=== PATIENT | male | born 1970 | race Caucasian/White ===

== ENCOUNTER 2017-04-18 19:30 | Inpatient (IN) | payer BC ==
--- NOTE | ~2017-04-18 | HP ---
History And Physical [place] [facility] [place]. [address] NAME: PEMA ALANIZ : 70 STATUS : ADM IN [facility]#: [id number] AGE: 46 ADM/REG DATE : 04/18/17 MR#: [id number] REPORT SERV DATE: 04/19/17 DICTATED BY: LYUBOV HOANG DATE: 04/18/17 REPORT STATUS : Draft TRANSCRIBED BY: MODL DATE: 04/18/17 DATE OF ADMISSION: 04/18/2017 CHIEF COMPLAINT: Abdominal cellulitis, sent from Dr. Gregorio' office. HISTORY OF PRESENT ILLNESS: The patient is a very pleasant 46-year-old male with past medical history of type 2 diabetes, insulin dependent; hypothyroidism; obesity; additional history of MRSA; cellulitis from the left foot, who presents with open sore in his abdomen over the last three days, started having bloody discharge after he had packed it with gauze at work and decided to get checked out by his PCP, Dr. Gregorio. The patient reports that he does not recall having done anything to have this wound, there is possibly an ingrown hair, but knowing history of prior MRSA, it was concerned that this could be a repeat infection, although last episode was many years ago. The patient is accompanied by who is at bedside and the patient does not report having any injuries. does report that he has been picking at lesion. He has been trying to treat it himself and has subsequently had a black eschar formation, has not had great resolution as erythema continues to spread. Blood sugars have been still fairly well controlled. Has not had any fevers, chest pain, shortness of breath, nausea, vomiting, diarrhea, decrease in p.o. intake, night sweats, and cramping. He is still fairly active. Pain is worsened with palpation, nothing improves it. REVIEW OF SYSTEMS: 10-point review of systems negative except for that noted in the HPI. PAST MEDICAL HISTORY: Noted for MRSA foot cellulitis, Achilles tendinitis, coronary artery disease with stent placement by Dr. Conn, insulin-dependent diabetes, GERD, hypertension, hyperlipidemia, hypothyroidism, psoriasis, UTI, kidney stone, and sleep apnea. PAST SURGICAL HISTORY: Cath and hernia. FAMILY HISTORY: Arthritis, diabetes, coronary artery disease, CVA, and hypertension. SOCIAL HISTORY: No alcohol. Smokes one cigar possibly every three months. No illegal drugs. . PHYSICAL EXAMINATION: VITAL SIGNS: Blood pressure 161/86, temperature 98.2, pulse 91. GENERAL: No acute distress. Calm, pleasant, well developed, well nourished. EYES: No scleral icterus. EOMI. ENT: Nares patent. Tongue midline. Moist mucous membranes. NECK: Large. CHEST: Equal chest expansion. No increased AP diameter. RESPIRATORY: Clear to auscultation. No wheezes or rales. CV: Regular rate. No rubs or gallops. Mild trace edema bilaterally. ABDOMEN: Soft, nontender, nondistended. Negative rebound at upper groin. Lower panniculitis does have tenderness to palpation, erythema, but no draining at this time. History And Physical [place] [address] [facility] [place]. [address] NAME: PEMA ALANIZ : 70 STATUS : ADM IN [facility]#: [id number] AGE: 46 ADM/REG DATE : 04/18/17 MR#: [id number] REPORT SERV DATE: 04/19/17 DICTATED BY: LYUBOV HOANG DATE: 04/18/17 REPORT STATUS : Draft TRANSCRIBED BY: GILES DATE: 04/18/17 Does have black eschar on right side from healing, possibly early blood scar. No active oozing at this time. GROIN: Normal external genitalia. EXTREMITIES: Moves all extremities x4. NEUROLOGIC: Symmetrical smile, hand strength. Tongue midline. No tremors. Normal vocal nohemy. Sensation is still grossly intact. PSYCHIATRIC: Appropriate mood and affect. LABORATORY DATA: Still currently pending. ASSESSMENT AND PLAN: 1. Abdominal cellulitis abscess with methicillin-resistant Staphylococcus aureus history. 2. Obesity. 3. Hypothyroidism. 4. Hypertension. 5. Coronary artery disease. 6. Insulin-dependent diabetes. 7. Hyperlipidemia. PLAN: 1. For abdominal cellulitis abscess MRSA with MRSA history, vancomycin IV, check cultures, surgical evaluation was last in clinic. If possible, we will need additional clearance. For obesity, he has lost over 50 pounds. 2. Hypothyroidism. Check free T4, TSH. 3. Hypertension. BITA inhibitor and beta-georgina. We will continue to monitor. 4. Coronary artery disease, on Plavix, statin, lisinopril, metoprolol, followed by Dr. Conn. 5. Insulin-dependent diabetes type 2. Check A1c. Levemir and sliding scale insulin. 6. Hyperlipidemia on statin. All questions answered with the patient and family at bedside. Anticipate greater than two midnight inpatient stay. DDN/MODL Lyubov Hoang MD / [id number] CC: MD Cesar Crowell III, D.O.
--- NOTE | ~2017-04-18 | DS ---
Discharge Summary [facility] [address] [place]. [address] NAME: PEMA ALNAIZ : 70 STATUS : DIS IN PAT#: [id number] AGE: 46 ADM/REG DATE : 04/18/17 MR#: [id number] REPORT SERV DATE: 04/22/17 DICTATED BY: DATE: REPORT STATUS : Draft TRANSCRIBED BY: MODL DATE: 04/21/17 ADMISSION DATE: 04/18/2017 DISCHARGE DATE: 04/21/2017 The patient was [facility] to the [facility]. PAPER BAG PRESS OPERATOR: Dr. Parish Reynaga of General Surgery. DISCHARGE DIAGNOSES: 1. methicillin-susceptible Staphylococcus aureus cellulitis and abdominal wall/pubic abscess, status post incision and drainage on 04/19/2017. 2. History of methicillin-resistant Staphylococcus aureus infection. 3. Asymptomatic bacteriuria - culture demonstrated greater than 100,000 colony-forming units of Klebsiella, cephalosporin sensitive. 4. Coag-negative Staph, positive blood culture - suspect contaminant. 5. Insulin-dependent diabetes mellitus type 2 - uncontrolled with hemoglobin A1c of 10.7 due to dietary noncompliance. 6. Obesity with recent intentional weight loss. 7. Hypertension - controlled. 8. Hyperlipidemia. 9. Hypothyroidism - with elevated TSH of 3.95 and normal free T4, for outpatient recheck. 10.History of coronary artery disease with prior stenting. IMAGING: None. PROCEDURES: Bedside incision and drainage of abdominal wall/pubic abscess on 04/19/[address] Ashutosh Calderon. PERTINENT LABS: Procalcitonin 1.11, creatinine value 0.8 to 0.9 this admission with normal electrolytes. Blood glucose values ranging from 150-230, hemoglobin A1c 10.7. Liver enzymes normal. TSH 3.95, free T4 of 1.22. White count initially 10.7, 9.2 at discharge. Hemoglobin values between 12.4, 12.8, platelets normal. Coagulation studies normal. Urinalysis cloudy with moderate leukocyte esterase and 19 white blood cells. Blood cultures one out of two positive on 04/18/2017 for coag-negative Staph. Urine culture positive on 04/19/2017, greater than 100,000 colony-forming units of Klebsiella. Wound cultures 04/18/2017 and 04/19/2017 demonstrating moderate to abundant growth of MSSA, resistant to ampicillin. BRIEF HISTORY: For full details, please see the previously dictated history of present illness by Dr. Alexis Gomez. This is a 46-year-old white male with past medical history of MRSA cellulitis, uncontrolled insulin-dependent type 2 diabetes, morbid obesity, sent as a direct admission from Dr. Miguel Gregorio' office with abdominal wall cellulitis. The patient had been treating with topical antibiotic ointment with progression of pain, redness, and development of a black eschar. Per patient, when he saw Dr. Gregorio, incision and drainage of the abscess cavity was attempted but unsuccessful. The patient was then admitted to the hospital for further management. Discharge Summary [place] [id number] [place]. [address] NAME: PEMA ALANIZ : 70 STATUS : DIS IN PAT#: [id number] AGE: 46 ADM/REG DATE : 04/18/17 MR#: [id number] REPORT SERV DATE: 04/22/17 DICTATED BY: DATE: REPORT STATUS : Draft TRANSCRIBED BY: MODL DATE: 04/21/17 HOSPITAL COURSE: The patient was admitted and placed on empiric vancomycin given history of MRSA infections in the past. General Surgery was consulted and performed bedside incision and drainage without complication on 04/19/2017. Subsequent wound cultures demonstrated abundant MSSA. Blood cultures were one out of two positive for coag-negative staph, which was felt to be a contaminant. The patient also had noted abnormal urinalysis. Though he had no symptoms suggestive of urinary tract infection, subsequent culture returned greater than 100,000 colony-forming units of Klebsiella. Both the MSSA and Klebsiella are cephalosporin susceptible and will be treated with Duricef at discharge. The patient will continue his local wound care to include packing with a wick and covering with a gauze bandage. He was provided with a work note to return to full duty without restrictions on 04/25/2017. His diabetes is uncontrolled with hemoglobin A1c of 10.7. The patient was seen by the inpatient diabetes mellitus educator. He required left basal insulin here than outpatient, suggesting possible dietary noncompliance. He stated that he would attempt to be more strict about his diet and follow up closely with Dr. Gregorio regarding any future insulin adjustments that would be needed. The only other issue this admission was abnormal thyroid function test - as dictated above. On his current dose of replacement, his TSH was slightly high. The free T4 was normal. This could be affected by the acute illness. Recommend repeat values in four to six weeks. DISCHARGE DISPOSITION: To home with his supportive and no specific activity restrictions aside from the work note provided, to return to work on 04/25/2017. Regarding diet, he should adhere to an 1800 K calorie ADA diet. DISCHARGE MEDICATIONS: Include: 1. Aspirin 325 mg p.o. daily. 2. Lipitor 80 mg p.o. daily. 3. Plavix 75 mg p.o. daily. 4. Hydrochlorothiazide 25 mg p.o. daily. 5. Toujeo 25 units subcu at bedtime. 6. Levothyroxine 150 mcg on Tuesday, Tuesday, Tuesday, , Tuesday, and 175 mcg on Tuesday and Tuesday. 7. Lisinopril 10 mg p.o. daily. 8. Toprol-XL 25 mg p.o. daily. 9. Protonix 40 mg p.o. daily. 10.Calcipotriene ointment, apply daily as needed. 11.Qytj-ivl-eiskegv supplements including cranberry, multivitamin, glucosamine, B12, vitamin C, vitamin D. 12.Glipizide/metformin 5/500 mg one tablet p.o. twice a day. Discharge Summary [address] [address] NAME: PEMA ALANIZ : 70 STATUS : DIS IN PAT#: [id number] AGE: 46 ADM/REG DATE : 04/18/17 MR#: [id number] REPORT SERV DATE: 04/22/17 DICTATED BY: DATE: REPORT STATUS : Draft TRANSCRIBED BY: GILES DATE: 04/21/17 13.Duricef 1000 mg p.o. b.i.d. for 11 days to complete a 14 day total treatment course. Thirty five minutes was spent in completion of the discharge. DICTATED BY: Manuel Gao/GILES Bear Blair M.D. / [id number] CC: Manuel Gao III, D.O. William T. Bates III, D.O.
[~2017-04-18 19:30] MED LIST: ASA5GR PO; ASAB PO; CRESTOR40 MG PO; DUETACT PO; GLUMETZA500 MG PO; LEVOTHYROXIN150 MCG PO; LEVOTHYROXIN175 MCG PO; LOP25 PO; MULTIPLE VIT PO; MULTIVITAMI1 PO; PLAVIX PO; PRIN20 PO; TOPXL25 PO; VICTOZA 18MG/3ML; VITAMIN B-121000 MC1 SL; VITAMIN C100 MG PO; VITC500 PO; ZESTORETIC1 TAB PO; ZOCOR40 PO
[2017-04-18 21:49] LABS: BASOPHILS 0.3 %; BASOPHILS ABSOLUTE 0.03 10/3/uL (0.0-0.16); EOSINOPHILS 4.7 %; HEMATOCRIT 38.4 % (40.0-51.0); HEMOGLOBIN 12.8 g/dL (13.6-17.8); IMMATURE GRANULOCYTES 0.5 %; IMMATURE GRANULOCYTES ABSOLUTE 0.05 10/3/uL (0.0-0.11); LYMPHOCYTES 24.1 %; LYMPHOCYTES ABSOLUTE 2.57 10/3/uL (0.67-4.30); MEAN CORPUS HGB CONC 33.3 g/dL (32.0-36.0); MEAN CORPUSCULAR VOLUME 86.9 fL (80-100); MEAN PLATELET VOLUME 9.5 fL (9.2-13.0); MONOCYTES 7.9 %; MONOCYTES ABSOLUTE 0.84 10/3/uL (0.21-1.20); NEUTROPHILS 62.5 %; NEUTROPHILS ABSOLUTE 6.68 10/3/uL (2.02-8.40); PLATELET COUNT 267 10/3/uL (150-400); RBC DISTRIBUTION WIDTH 13.4 % (12.0-16.0); RED CELL COUNT 4.42 10/6/uL (4.7-6.1); WHITE BLOOD CELLS 10.7 10/3/uL (4.5-10.5)
[2017-04-18 21:52] LABS: MANUAL DIFF NO %
[2017-04-18] MEDS ORDERED: PRIN10 PO (22:09)
[2017-04-18] MEDS ORDERED: LIPITOR80 MG PO (22:15)
[2017-04-18] MEDS ORDERED: METAGLIP1 TA2 PO (22:18)
[2017-04-18] MEDS ORDERED: HYDROCHLOROT25 MG PO (22:20)
[2017-04-18] MEDS ORDERED: PROTONIX PO (22:23)
[2017-04-18] MEDS ORDERED: LEVOTHYROXINE PO (22:30)
[2017-04-18] MEDS ORDERED: ASA5GR PO (22:31)
[2017-04-18 22:58] LABS: ALBUMIN 3.6 G/DL (3.5-5.0); ALKALINE PHOSPHATASE 76 U/L (45-117); BUN (BLOOD UREA NITROGEN) 12 MG/DL (6-23); CALCIUM, SERUM 8.9 MG/DL (8.5-10.4); CHLORIDE, SERUM 103 MMOL/L (96-112); CREATININE 0.87 MG/DL (0.70-1.30); GFR AFRICAN AMERICAN 120 ML/MIN (>=60); GFR NON AFRICAN AMERICAN 104 ML/MIN (>=60); GLOBULIN 3.7 G/DL (2.5-4.1); GLUCOSE, SERUM 154 MG/DL (60-99); POTASSIUM, SERUM 3.7 MMOL/L (3.5-5.3); SGOT(AST) 23 U/L (5-40); SGPT(ALT) 33 U/L (5-65); SODIUM, SERUM 141 MMOL/L (135-148); TOTAL BILIRUBIN 0.6 MG/DL (0-1.2); TOTAL PROTEIN 7.3 G/DL (6.0-8.5)
[2017-04-18 22:59] LABS: CO2 (CARBON DIOXIDE) 30 MMOL/L (24-34)
[2017-04-19 00:45] LABS: FREE T4 1.22 NG/DL (0.76-1.46)
[2017-04-19 09:03] LABS: ASCORBIC ACID (UR NOT ORDER) 40 (NEG); BILIRUBIN, URINE NEGATIVE (NEG); KETONE, URINE NEGATIVE (NEG); LEUKOCYTE ESTERASE(NOT OR MOD (NEG); WBC (NOT ORDERED) (RFLEX) 19 (0-5)
[2017-04-19 10:51] LABS: BASOPHILS 0.2 %; BASOPHILS ABSOLUTE 0.02 10/3/uL (0.0-0.16); EOSINOPHILS 6.3 %; EOSINOPHILS ABSOLUTE 0.56 10/3/uL (0.0-0.53); HEMATOCRIT 38.6 % (40.0-51.0); HEMOGLOBIN 12.5 g/dL (13.6-17.8); IMMATURE GRANULOCYTES 0.3 %; IMMATURE GRANULOCYTES ABSOLUTE 0.03 10/3/uL (0.0-0.11); LYMPHOCYTES 24.9 %; LYMPHOCYTES ABSOLUTE 2.23 10/3/uL (0.67-4.30); MANUAL DIFF NO %; MEAN CORPUS HGB CONC 32.4 g/dL (32.0-36.0); MEAN CORPUSCULAR HEMOGLOB 28.3 pg (26.0-34.0); MEAN CORPUSCULAR VOLUME 87.5 fL (80-100); MEAN PLATELET VOLUME 9.3 fL (9.2-13.0); MONOCYTES 7.4 %; MONOCYTES ABSOLUTE 0.66 10/3/uL (0.21-1.20); NEUTROPHILS 60.9 %; NEUTROPHILS ABSOLUTE 5.45 10/3/uL (2.02-8.40); PLATELET COUNT 241 10/3/uL (150-400); RBC DISTRIBUTION WIDTH 13.5 % (12.0-16.0); RED CELL COUNT 4.41 10/6/uL (4.7-6.1)
[2017-04-19 11:04] LABS: BUN (BLOOD UREA NITROGEN) 11 MG/DL (6-23); CHLORIDE, SERUM 101 MMOL/L (96-112); CO2 (CARBON DIOXIDE) 27 MMOL/L (24-34); GFR AFRICAN AMERICAN 124 ML/MIN (>=60); GFR NON AFRICAN AMERICAN 107 ML/MIN (>=60); GLUCOSE, SERUM 183 MG/DL (60-99); POTASSIUM, SERUM 3.8 MMOL/L (3.5-5.3); SODIUM, SERUM 135 MMOL/L (135-148)
[2017-04-19 12:18] LABS: PROCALCITONIN 1.11 ng/mL (<0.5)
[2017-04-19] MEDS ORDERED: LIPITOR80 MG PO (12:38)
[2017-04-19] MEDS ORDERED: BYDUREON2 MG SQ (12:39)
[2017-04-19] MEDS ORDERED: TESSALON200 MG PO (12:39)
[2017-04-19] MEDS ORDERED: DOVONCR60 TOP (12:40)
[2017-04-19] MEDS ORDERED: PLAVIX PO (12:40)
[2017-04-19] MEDS ORDERED: CRANBERRY500 MG PO (12:40)
[2017-04-19] MEDS ORDERED: HYDROCHLOROT25 MG PO (12:42)
[2017-04-19] MEDS ORDERED: METAGLIP1 TA2 PO (12:42)
[2017-04-19] MEDS ORDERED: LEVOTHYROXIN175 MCG PO (12:44)
[2017-04-19] MEDS ORDERED: SYN.15 PO (12:44)
[2017-04-19] MEDS ORDERED: ZESTRIL10 MG PO (12:45)
[2017-04-19] MEDS ORDERED: MULTIVITAMI1 PO (12:46)
[2017-04-19] MEDS ORDERED: TOPXL25 PO (12:46)
[2017-04-19] MEDS ORDERED: OSTEO BI-FLEX1 EACH PO (12:47)
[2017-04-19] MEDS ORDERED: PROTONIX PO (12:47)
[2017-04-19] MEDS ORDERED: ZOFRAN ODT4 MG PO (12:47)
[2017-04-19] MEDS ORDERED: CYANO1000T PO (12:49)
[2017-04-19] MEDS ORDERED: VITC500 PO (12:49)
[2017-04-19] MEDS ORDERED: TOUJEO SQ (12:49)
[2017-04-19] MEDS ORDERED: VITAMIN D1000 UNI1 PO (12:50)
[2017-04-19] MEDS ORDERED: REVATIO20 PO (12:52)
[2017-04-19] MEDS ORDERED: ASA5GR PO (20:11)
[2017-04-20 04:26] LABS: BASOPHILS 0.2 %; BASOPHILS ABSOLUTE 0.02 10/3/uL (0.0-0.16); EOSINOPHILS 5.8 %; EOSINOPHILS ABSOLUTE 0.53 10/3/uL (0.0-0.53); HEMATOCRIT 36.7 % (40.0-51.0); HEMOGLOBIN 12.4 g/dL (13.6-17.8); IMMATURE GRANULOCYTES 0.7 %; IMMATURE GRANULOCYTES ABSOLUTE 0.06 10/3/uL (0.0-0.11); LYMPHOCYTES 24.3 %; LYMPHOCYTES ABSOLUTE 2.22 10/3/uL (0.67-4.30); MEAN CORPUS HGB CONC 33.8 g/dL (32.0-36.0); MEAN CORPUSCULAR HEMOGLOB 29.5 pg (26.0-34.0); MEAN CORPUSCULAR VOLUME 87.2 fL (80-100); MEAN PLATELET VOLUME 9.3 fL (9.2-13.0); MONOCYTES 8.2 %; MONOCYTES ABSOLUTE 0.75 10/3/uL (0.21-1.20); NEUTROPHILS 60.8 %; NEUTROPHILS ABSOLUTE 5.56 10/3/uL (2.02-8.40); PLATELET COUNT 240 10/3/uL (150-400); RBC DISTRIBUTION WIDTH 13.3 % (12.0-16.0); RED CELL COUNT 4.21 10/6/uL (4.7-6.1); WHITE BLOOD CELLS 9.1 10/3/uL (4.5-10.5)
[2017-04-20 04:28] LABS: MANUAL DIFF NO %
[2017-04-20 04:45] LABS: BUN (BLOOD UREA NITROGEN) 12 MG/DL (6-23); CALCIUM, SERUM 8.9 MG/DL (8.5-10.4); CHLORIDE, SERUM 100 MMOL/L (96-112); CO2 (CARBON DIOXIDE) 26 MMOL/L (24-34); CREATININE 0.82 MG/DL (0.70-1.30); GFR AFRICAN AMERICAN 123 ML/MIN (>=60); GFR NON AFRICAN AMERICAN 106 ML/MIN (>=60); GLUCOSE, SERUM 183 MG/DL (60-99); POTASSIUM, SERUM 3.9 MMOL/L (3.5-5.3); SODIUM, SERUM 134 MMOL/L (135-148)
[2017-04-21 04:50] LABS: BASOPHILS 0.3 %; BASOPHILS ABSOLUTE 0.03 10/3/uL (0.0-0.16); EOSINOPHILS 6.2 %; EOSINOPHILS ABSOLUTE 0.57 10/3/uL (0.0-0.53); HEMATOCRIT 37.5 % (40.0-51.0); HEMOGLOBIN 12.8 g/dL (13.6-17.8); IMMATURE GRANULOCYTES 0.9 %; IMMATURE GRANULOCYTES ABSOLUTE 0.08 10/3/uL (0.0-0.11); LYMPHOCYTES 23.5 %; LYMPHOCYTES ABSOLUTE 2.16 10/3/uL (0.67-4.30); MEAN CORPUS HGB CONC 34.1 g/dL (32.0-36.0); MEAN CORPUSCULAR HEMOGLOB 29.4 pg (26.0-34.0); MEAN PLATELET VOLUME 9.2 fL (9.2-13.0); MONOCYTES 8.7 %; NEUTROPHILS 60.4 %; NEUTROPHILS ABSOLUTE 5.54 10/3/uL (2.02-8.40); PLATELET COUNT 256 10/3/uL (150-400); RED CELL COUNT 4.36 10/6/uL (4.7-6.1); WHITE BLOOD CELLS 9.2 10/3/uL (4.5-10.5)
[2017-04-21 04:53] LABS: MANUAL DIFF NO %
[2017-04-21 05:01] LABS: BUN (BLOOD UREA NITROGEN) 12 MG/DL (6-23); CALCIUM, SERUM 8.8 MG/DL (8.5-10.4); CHLORIDE, SERUM 101 MMOL/L (96-112); CO2 (CARBON DIOXIDE) 27 MMOL/L (24-34); GFR AFRICAN AMERICAN 118 ML/MIN (>=60); GFR NON AFRICAN AMERICAN 102 ML/MIN (>=60); POTASSIUM, SERUM 3.9 MMOL/L (3.5-5.3); SODIUM, SERUM 135 MMOL/L (135-148)
[2017-04-21 05:03] LABS: GLUCOSE, SERUM 230 MG/DL (60-99)
[2017-04-21] MEDS ORDERED: DURICEF PO (12:05)
== END 2017-04-21 14:05 | disposition home or self-care (01) | DRG 357 ==
LOC: 4SO 19:30
PROVIDERS: Hospitalist; Student in an Organized Health Care Education/Training Program
PROC: 0W9J0ZZ Drainage of Pelvic Cavity, Open Approach (ICD-10-PCS; principal; 2017-04-19)
DX: K65.1 Peritoneal abscess (principal); L03.311 Cellulitis of abdominal wall; E11.65 Type 2 diabetes mellitus with hyperglycemia; I10 Essential (primary) hypertension; Z68.42 Body mass index [BMI] 45.0-49.9, adult; L02.211 Cutaneous abscess of abdominal wall; E03.9 Hypothyroidism, unspecified; I25.10 Atherosclerotic heart disease of native coronary artery without angina pectoris; L40.9 Psoriasis, unspecified; K21.9 Gastro-esophageal reflux disease without esophagitis; E78.5 Hyperlipidemia, unspecified; F17.291 Nicotine dependence, other tobacco product, in remission; Z79.4 Long term (current) use of insulin; Z86.14 Personal history of Methicillin resistant Staphylococcus aureus infection; Z87.440 Personal history of urinary (tract) infections; Z98.61 Coronary angioplasty status; E66.01 Morbid (severe) obesity due to excess calories
CPT/HCPCS: 80048; 80053; 80202; 81001; 82962; 83036; 83735; 84100; 84145; 84439; 84443; 85025; 87040; 87070; 87077; 87086; 87186; 87205; A9270-GY; J1170; J3370